=== PATIENT | female | born 1980 | race African-American/Black ===

== ENCOUNTER 2017-03-16 06:07 | Day surgery (SDC) | payer BC ==
[2017-03-09 15:00] VITALS: BMI 33.0
[2017-03-16] MEDS ORDERED: BUPIVACAINE HCL/PF 0.5% (5MG/ML) 10 ML VIAL ONE ×2 (07:02→07:25)
[2017-03-16] MEDS ORDERED: LIDOCAINE HCL 2% (20ML MULTI-DOSE VIAL) NR ONE ×2 (07:02→07:25)
[2017-03-16] MEDS ORDERED: MIDAZOLAM HCL 2 MG/2 ML SINGLE DOSE VIAL ONE (07:17)
[2017-03-16] MEDS ORDERED: PROPOFOL 20 ML ONE ×2 (07:17)
[2017-03-16] MEDS ORDERED: LIDOCAINE HCL 2% (50ML VIAL) INF ONE (08:04)
[2017-03-16] MEDS ORDERED: BUPIVACAINE HCL/PF 0.5% (5MG/ML) 10 ML VIAL IJ ONE (08:04)
--- NOTE | 2017-03-16 09:11 | OP ---
DATE OF OPERATION: 03/16/2017 PREOPERATIVE DIAGNOSIS: Hammertoe, right fifth toe. POSTOPERATIVE DIAGNOSIS: Hammertoe, right fifth toe. ANESTHESIA: Local with IV sedation. A total of 9 mL of a 50/50 solution of 2% plain Xylocaine and 0.5% Marcaine was done. SURGEON: Deejay Cosby DPM PRINTED CIRCUIT LAYOUT TAPER: Ranjana Watson DPM PROCEDURE IN DETAIL: The patient was taken to the operating room, placed on the operating table in supine position. The usual aseptic prepping and draping were performed after local anesthesia was initiated. Prepping and draping were then completed. After a full 3 minutes of elevation, the right extremity was elevated for a full 3 minutes and lowered to the operating table. Tourniquet on the ankle was inflated to 250 mmHg. At this point, a 2-cm elliptical, 2.5-cm longitudinal incisions were effectively placed over the proximal interphalangeal joint of the right fifth toe. The incision was deepened through subcutaneous tissue down to the tendon. A transverse incision was effectively made through the tendon. The medial and lateral collateral ligaments were incised, and at the level of the surgical neck, an arthroplasty was performed at the head of the proximal phalanx, excising a portion of bone. Area was flushed with copious amounts of sterile saline solution and rasped. Tendon was reapproximated and closed with No. 3-0 Vicryl. Skin was reapproximated and closed with No. 5-0 nylon. A dry sterile dressing was applied to the operative foot. Capillary filling time and all vital signs were noted to be intact at bandaging. Patient was then taken to the [facility] under the care of the Anesthesia Department. MARTITA PRITCHETT/[id number]
[2017-03-16 09:38] VITALS: BP 123/75; PULSE 78; TEMP 97.7
[2017-03-16] MEDS ORDERED: HYDROCHLOROTHIAZIDE 25 MG TABLET (FP) PO SCH (10:00)
== END 2017-03-16 09:35 | disposition home or self-care (01) ==
LOC: FASU 06:07
PROVIDERS: ATTEND Podiatrist
PROC: 0SRP0JZ Replacement of Right Toe Phalangeal Joint with Synthetic Substitute, Open Approach (ICD-10-PCS; principal; 2017-03-16 07:51)
DX: M20.41 Other hammer toe(s) (acquired), right foot (principal)
CPT/HCPCS: 84703